=== PATIENT | female | born 1990 | race Caucasian/White ===

== ENCOUNTER 2020-11-08 15:00 | Emergency (ER) | payer MEDICAID, OTHER ==
[~2020-11-08] VITALS: Ht 170.2 cm; Wt 80.3 kg
[2020-11-08 15:08] VITALS: BP 149/96
--- NOTE | 2020-11-08 15:25 | NUR ---
PT AMB TO BED 12
--- NOTE | 2020-11-08 15:30 | NUR ---
used [employer] [facility]. spoke with Emily #[phone]
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
[2020-11-08 15:51] VITALS: BP 149/96
--- NOTE | 2020-11-08 15:57 | NUR ---
see complete assessment.
[2020-11-08] MEDS ORDERED: KETOROLAC 30 MG/ML VIAL IM ONE (16:00)
--- NOTE | 2020-11-08 16:00 | NUR ---
[place] [employer] arrived and at bedside to interview pt. [facility] in contact again with Lorena #[id number]
--- NOTE | 2020-11-08 16:27 | NUR ---
pt currently states unable to provide urine.
--- NOTE | 2020-11-08 16:45 | NUR ---
Xray at bedside.
== END 2020-11-08 17:44 | disposition home or self-care (01) ==
LOC: MED 15:00
DX: M79.10 Myalgia, unspecified site (principal); M25.562 Pain in left knee; M54.2 Cervicalgia; J45.909 Unspecified asthma, uncomplicated; E11.9 Type 2 diabetes mellitus without complications; I10 Essential (primary) hypertension; Y04.0XXA Assault by unarmed brawl or fight, initial encounter; Y93.89 Activity, other specified; Y92.89 Other specified places as the place of occurrence of the external cause; Y99.8 Other external cause status
CPT/HCPCS: 73610; 96372; 99283; J1885

== ENCOUNTER 2021-11-06 12:16 | Emergency (ER) | payer MEDICAID ==
[~2021-11-06] VITALS: Ht 170.2 cm; Wt 90.3 kg
[2021-11-06 12:39] VITALS: BP 132/70
[2021-11-06] MEDS ORDERED: KETOROLAC 60 MG/2 ML VIAL IM ONE (14:05)
[2021-11-06] MEDS ORDERED: IBUP-2213 PO (14:05)
[2021-11-06 16:24] VITALS: BP 132/70
--- NOTE | 2021-11-06 16:25 | NUR ---
patient left without discharge instructions
--- NOTE | 2021-11-06 16:25 | NUR ---
no nursing interventions provided
== END 2021-11-06 16:24 | disposition home or self-care (01) ==
LOC: MED 12:16 → EEVIPCON 12:16 → MED 16:24
DX: H92.01 Otalgia, right ear (principal); J45.909 Unspecified asthma, uncomplicated; E11.9 Type 2 diabetes mellitus without complications; I10 Essential (primary) hypertension; Z79.899 Other long term (current) drug therapy
CPT/HCPCS: 99282

== ENCOUNTER 2022-09-27 13:27 | Emergency (ER) | payer MEDICAID ==
[~2022-09-27] VITALS: Ht 167.6 cm; Wt 49.4 kg
[~2022-09-27 13:27] MED LIST: IBUP-2213 PO
[2022-09-27 13:38] VITALS: BP 95/53
--- NOTE | 2022-09-27 15:51 | NUR ---
name called by lab, no answer outside or in lobby at this time
--- NOTE | 2022-09-27 19:14 | NUR ---
Note undone in EDM - 09/27/22 at 1925 by HEIKE patient seen and evaluated by ermd. Written and verbal after care instructions given and explained. Patient alert, oriented and verbalized understanding of instructions. Ambulatory with steady gait. All questions addressed prior to discharge. ID band removed. Patient advised to follow up with PMD. Rx of ibuprofen and amoxicillin given. Patient educated on indication of medication including possible reaction and side effects. Opportunity to ask questions provided and answered.
--- NOTE | 2022-09-27 19:25 | NUR ---
ambulated to bed 2
--- NOTE | 2022-09-27 19:56 | NUR ---
LAB AT BEDSIDE
[2022-09-27 20:04] LABS: BASOPHILS # (AUTO) 0.1 K/uL (0.00-0.22); BASOPHILS % (AUTO) 0.5 % (0.0-2.0); EOSINOPHILS # (AUTO) 0.2 K/uL (0-0.4); EOSINOPHILS % (AUTO) 1.6 % (0.0-4.0); HEMATOCRIT 41.9 % (36-48); HEMOGLOBIN 14.2 g/dL (12.0-16.0); LYMPHOCYTES # (AUTO) 3.3 K/uL (2.5-16.5); LYMPHOCYTES % (AUTO) 30.3 % (20.5-51.1); MEAN CORPUSCULAR HEMOGLOBIN 28 pg (27-31); MEAN CORPUSCULAR HGB CONC 34 g/dL (33-37); MONOCYTES # (AUTO) 0.5 K/uL (0.8-1.0); MONOCYTES % (AUTO) 4.3 % (1.7-9.3); NEUTROPHILS # (AUTO) 6.9 K/uL (1.8-7.7); NEUTROPHILS % (AUTO) 63.3 % (42.2-75.2); PLATELET COUNT (AUTO) 390 K/uL (140-450); RED BLOOD CELL COUNT(AUTO) 4.99 MIL/uL (4.20-5.40); RED CELL DISTRIBUTION WIDTH 13.2 % (11.6-13.7); WHITE BLOOD COUNT (AUTO) 10.8 K/uL (4.8-10.8)
[2022-09-27 20:27] LABS: ANION GAP 9.7 (8-16); CARBON DIOXIDE 30.1 mmol/L (21-32); CREATININE 0.7 mg/dL (0.6-1.3); POTASSIUM 3.8 mmol/L (3.5-5.1); TOTAL BILIRUBIN 0.4 mg/dL (0.0-1.0)
--- NOTE | 2022-09-27 20:46 | NUR ---
Dr. Jurado examining patient.
--- NOTE | 2022-09-27 21:51 | NUR ---
Written and verbal after care instructions given and explained. Patient verbalized understanding. Ambulatory with steady gait. All questions addressed prior to discharge. Advised to follow up with PMD.
[2022-09-27 21:52] VITALS: BP 110/60
== END 2022-09-27 21:51 | disposition home or self-care (01) ==
LOC: MED 13:27
DX: M25.522 Pain in left elbow (principal)
CPT/HCPCS: 36415; 73080; 80053; 81025; 82948; 83690; 85025; 99284; Q0092

== ENCOUNTER 2023-07-29 13:51 | Emergency (ER) | payer MEDICAID ==
[~2023-07-29] VITALS: Ht 170.2 cm; Wt 90.7 kg
[2023-07-29 14:05] VITALS: BP 122/72; PULSE 78; RESP 18; TEMP 98.6; O2SAT 98
[2023-07-29] MEDS: LORATADINE 10 MG TAB PO ONE (14:43)
[2023-07-29] MEDS: FAMOTIDINE 20 MG TAB PO ONE (14:43)
[2023-07-29] MEDS: predniSONE 20 MG TAB PO ONE (14:44)
[2023-07-29 14:47] VITALS: O2SAT 98
[2023-07-29] MEDS ORDERED: FAMO-90 PO (14:52)
[2023-07-29] MEDS ORDERED: [UNRECOGNIZED DRUG - CODE] PO (14:52)
[2023-07-29] MEDS ORDERED: PRED20TA5 PO (14:52)
== END 2023-07-29 14:47 | disposition home or self-care (01) ==
LOC: MED 13:51
DX: L50.9 Urticaria, unspecified (principal); J45.909 Unspecified asthma, uncomplicated; E11.9 Type 2 diabetes mellitus without complications; I10 Essential (primary) hypertension; Z79.4 Long term (current) use of insulin; Z79.899 Other long term (current) drug therapy
CPT/HCPCS: 99284; J7512

== ENCOUNTER 2024-03-23 14:25 | Emergency (ER) | payer MEDICAID ==
[~2024-03-23] VITALS: Ht 170.2 cm; Wt 91.2 kg
[~2024-03-23 14:25] MED LIST changes: +FAMO-90 PO; +PRED20TA5 PO; +[UNRECOGNIZED DRUG - CODE] PO
[2024-03-23 14:40] VITALS: BP 111/79; PULSE 61; RESP 18; TEMP 97.1; O2SAT 97
[2024-03-23] MEDS ORDERED: CEPH-588 PO (15:19)
[2024-03-23] MEDS ORDERED: IBUP-2213 PO (15:19)
== END 2024-03-23 15:31 | disposition home or self-care (01) ==
LOC: MED 14:25
DX: L03.115 Cellulitis of right lower limb (principal); J45.909 Unspecified asthma, uncomplicated; Z79.1 Long term (current) use of non-steroidal anti-inflammatories (NSAID); Z79.899 Other long term (current) drug therapy
CPT/HCPCS: 99284